=== PATIENT | female | born 1970 | race Caucasian/White ===

== ENCOUNTER 2016-06-30 17:21 | Emergency (ER) | payer OTHER, BC ==
[~2016-06-30] VITALS: Ht 162.6 cm; Wt 99.2 kg
[2016-06-30 18:07] VITALS: BP 156/89; PULSE 82; RESP 16; TEMP 98; O2SAT 99
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
[2016-06-30] MEDS ORDERED: IBUP800T23 PO (19:27)
[2016-06-30] MEDS ORDERED: CYCL1TAB29 PO (19:27)
== END 2016-06-30 19:44 | disposition home or self-care (01) ==
LOC: PHEFT 17:21
DX: S93.401A Sprain of unspecified ligament of right ankle, initial encounter (principal); V43.52XA Car driver injured in collision with other type car in traffic accident, initial encounter
CPT/HCPCS: 73610; 99284; L1906